=== PATIENT | female | born 1975 | race Caucasian/White ===

== ENCOUNTER 2019-02-14 11:24 | Emergency (ER) | payer OTHER ==
[~2019-02-14] VITALS: Ht 170.2 cm; Wt 92.5 kg
[~2019-02-14 11:24] MED LIST: AMBIEN 5 MG TABL5 M1 PO; ATIVAN1 MG PO; BENADRYL25 MG; BUPRENORPHINE HC8 MG SL; DOLOPHINE HCL5 MG PO; FIORICET 50-321 EACH PO; FLEXERIL PO; HYDROCODON-ACE1 EAC7 PO; HYDROCODONE-AP1 EAC6 PO; IMITREX 25 MG T25 M1; MACRODANTIN50 MG PO; MEDROLDOSEPACK PO; NAPROXEN DELAY500 M1; NEURONTIN 300300 M1; NORCO 5-325 TA1 EACH PO; ONDANSETRON HCL4 M2 PO; PERCOCET 10-321 EAC1 PO; PERCOCET 5-3251 EACH PO; PHENERGAN; PRENATAL PO; PROPRANOLOL 1010 M1; REGLAN 10 MG TA10 M1 PO; SUBOXONE 8 MG-1 EAC1; TORADOL 10 MG T10 MG PO; VICODIN 5-5001 EACH PO; XANAX 0.5 MG0.5 MG PO; ZOFRAN ODT4 MG PO; ZOFRAN4 MG PO
[2019-02-14] MEDS ORDERED: CLONAZEPAM 0.50.5 M1 PO (11:35)
[2019-02-14] MEDS ORDERED: KLONOPIN1 MG PO ×2 (12:11→12:13)
[2019-02-14 12:23] VITALS: BP 148/79
== END 2019-02-14 12:24 | disposition home or self-care (01) ==
LOC: M.ERS 11:24
DX: F41.9 Anxiety disorder, unspecified (principal); Z76.0 Encounter for issue of repeat prescription; Z98.890 Other specified postprocedural states

== ENCOUNTER 2019-06-09 10:15 | Emergency (ER) | payer OTHER ==
[~2019-06-09] VITALS: Ht 172.7 cm; Wt 86.2 kg
[~2019-06-09 10:15] MED LIST changes: +CLONAZEPAM 0.50.5 M1 PO; +KLONOPIN1 MG PO
[2019-06-09 10:42] VITALS: BP 118/72
== END 2019-06-09 10:43 | disposition home or self-care (01) ==
LOC: M.ERS 10:15
DX: F41.9 Anxiety disorder, unspecified (principal); Z76.0 Encounter for issue of repeat prescription; Z98.890 Other specified postprocedural states